=== PATIENT | female | born 1940 | race Caucasian/White ===

== ENCOUNTER 2017-07-13 09:35 | Observation (INO) | payer MEDICARE, BC ==
[~2017-07-13] VITALS: Ht 175.3 cm; Wt 111.7 kg
--- NOTE | ~2017-07-13 | ECHO ---
Transthoracic Echocardiography Report (TTE) Demographics Patient Name JOHNIE KIMBALL Date of Study 07/13/2017 TRACE Patient Number [id number] Visit Number [id number] Date of 1940 Room Number G6328 Accession Number [id number] Gender Female Age 77 year(s) Referring Thuan Ramirez MD Hip Hop Artist Maggie Gutierrez [facility], Physician RVT Physician Interpreting [place] Professor Of Philosophy Physician Florencia ROSA Supervising Ordering Physician Thuan Ramirez MD, MD/MLP Nurse Stress Panama Hat Blocker Conclusions Contractility Score Summary Normal Left Ventricular contractility was noted. Summary Normal LV size and systolic function. The estimated left ventricular ejection fraction is 60-65%. Diastolic function indeterminate due to patient's arrhythmia. Mildly dilated right ventricle. Mild degenerative changes of the left sided valves. Mild tricuspid regurgitation by color Doppler. Mild biatrial enlargement. Procedure Type of Study TTE procedure:2D Echocardiogram. Procedure Date Date: 07/13/2017 Start: 11:06 AM Study Location: Inpatient Portable Technical Quality: Adequate visualization Indications:Chest pain. Appropriate Use Criteria: 9 Patient Status: Routine Rhythm: Atrial fibrillation HR: 130 bpm BP: 120/82 mmHg M-Mode/2D Measurements LV Diastolic Dimension: 5.09 cm LV Systolic Dimension: 3.19 cm LV Septum Diastolic: 1.49 cm LV Septum Systolic: 3.3 cm LV PW Diastolic: 1 cm Cardiac Output: 6.75 l/min LA Dimension: 3.81 cm LVOT: 2.1 cm IVC Inspiration: 0.88 cm LVOT VTI: 15 cm RV Base: 4.87 cm LV Stroke volume: 51.93 ml RV Length: 5.42 cm TAPSE: 2.38 cm TDI-S': 14.6 cm/s Doppler Measurements AV Peak Velocity: 1.51 m/s MV Peak E-Wave: 1.1 m/s AV Peak Gradient: 9.12 mmHg MV Peak A-Wave: 0.5 m/s AV Mean Gradient: 4 mmHg MV E/A Ratio: 2.2 LVOT Peak Velocity: 0.9 m/s MV P1/2t: 29 msec TR Gradient:32.72 mmHg PV Peak Velocity: 1.22 m/s Estimated RAP:3 mmHg PV Peak Gradient: 5.95 mmHg Estimated RVSP: 36 mmHg Estimated PASP: 35.72 mmHg E' Lateral Velocity: 0.13 m/s A' Lateral Velocity: 0.04 m/s MV E/E' Ratio: 7.9 Findings Left Ventricle Diastolic function indeterminate due to patient's arrhythmia. Right Ventricle Mildly dilated right ventricle. Left Atrium Left atrium is mildly dilated. Right Atrium Mild RA enlargement. IVC is not well visualized. Mitral Valve Mild degenerative changes of the MV. Mild mitral annular calcification. Aortic Valve The aortic valve is mildly sclerotic. Tricuspid Valve There is mild pulmonary hypertension. The pulmonary pressure (RVSP) is 35 mmHg. Mild tricuspid regurgitation by color Doppler. Pulmonic Valve Normal pulmonic valve structure and function. The pulmonic valve is not well visualized. Pericardial Effusion Trivial pericardial effusion. Miscellaneous Suboptimal subcostal window to evaluate the IVC and interatrial septum. Pleural Effusion No evidence of pleural effusion. Contractility Score LV regional wall motion:(0-Non visualized 1-Normal 2-Hypokinesis 3-Akinesis 4-Dyskinesis 5-Aneurysm) Signature dtt: FLORENCIA MORILLO dtd: 07/13/17 1106 Physician Self Edit
--- NOTE | ~2017-07-13 | ER ---
[facility] 77 Y [address] ROOM: [place] [address] LOCATION: GPCU ADMIT DATE: 07/13/2017 ER/Outpatient Report DISCHARGE DATE: FAMILY PHYSICIAN: Miguel Chaney MD ATTENDING PHYSICIAN: Tanja Downing CHIEF COMPLAINT: Rapid heart rate. HISTORY OF PRESENT ILLNESS: Ms. Kimball notes that 2 days ago, she thinks she felt pretty good and yesterday did not feel normal like something was wrong but could not exactly describe it, and today she woke up sweaty and then after that she developed some racing heart sensation and unsettledness. She has some dizziness associated with this as well. It seemed to have really gotten worse around 6 or 7 this morning, but the exact time of onset is unclear. She denies any other symptoms initially but did develop a headache during her stay in the emergency department. The patient does drink a significant amount of coffee historically. She has never had anything like this before. She follows primarily with Dr. Chaney. She has a history of high blood pressure but denies any history of heart disease and has a history of C-sections, gallbladder resection, and hysterectomy. PAST MEDICAL HISTORY: Documented on the record and reviewed by me. SOCIAL HISTORY: Documented on the record and reviewed by me. MEDICATIONS: Documented on the record and reviewed by me. ALLERGIES: DOCUMENTED ON THE RECORD AND REVIEWED BY ME. REVIEW OF SYSTEMS: All systems reviewed and negative except as noted in the HPI. PHYSICAL EXAMINATION: VITAL SIGNS: Blood pressure 136/94, pulse 93, respiratory rate is 20, temperature 97.8, SpO2 is 94% on room air. Pain 0/10. GENERAL: An age appropriate female, recumbent on exam table, in no apparent pain or distress with eyes closed. NEURO: GCS is 14. Opens eyes to PATIENT'S NAME: JOHNIE KIMBALL [facility] AGE: 77 Y [address] ROOM: [place] [address] LOCATION: GPCU ADMIT DATE: 07/13/2017 ER/Outpatient Report DISCHARGE DATE: FAMILY PHYSICIAN: Miguel Chaney MD ATTENDING PHYSICIAN: Tanja Downing. No difficulties. No abnormalities. No asymmetry on exam. No nystagmus. HEENT: Normocephalic, atraumatic. Eyes are PERRL. Oropharynx is clear. NECK: Supple. Trachea is midline. CHEST: Heart is irregularly irregular tachycardia with no murmurs. LUNGS: Clear to auscultation. BACK: Normal to inspection and palpation. ABDOMEN: Soft, nontender, and nondistended. No rebound or guarding. EXTREMITIES: Warm and well perfused with no obvious edema or deformities. SKIN: Clean, dry, and intact without diaphoresis. LABORATORY DATA AND X-RAYS: Chest x-ray is unremarkable per my review. EKG reveals atrial fibrillation with a ventricular rate, which varies between 80 and 120 beats per minute. Otherwise normal intervals and axis. Labs: CMS unremarkable. No elevation of cardiac enzymes. TSH and free T4 within normal limits. Head CT was obtained with no evidence of hemorrhage as reported by Radiology after the patient had left the emergency department. CBC is notable for a hemoglobin of 17.3, otherwise no white cell or platelet abnormalities. INR is 1. IMPRESSION: 1. New onset atrial fibrillation with unclear start time. 2. Headache secondary to medication. EMERGENCY DEPARTMENT COURSE: The patient was seen and evaluated as above. She has new onset atrial fibrillation, which is likely within the last 48 hours, however, I cannot get a definitive time of onset. For that reason, I have elected to be conservative for her. I did discuss the case with Dr. Blanco, room attendants. She requested an echo, and we will get her admitted to the [facility] team under the care of Dr. Downing. The patient does have some stimulant use with caffeine. Denies other drugs. She did develop a headache, which started after the initiation of diltiazem despite no significant changes in her blood pressure. Heart rate was controlled better. She did not get the full bolus as there have been issues with that recently and creating hypotension. She was given 10. Dr. Blanco requested Xarelto, however, with the patient having a new onset headache that she has not had before, I did order a head prior to initiating the Xarelto, but I did order it. The patient went to the floor with her Xarelto having not taken it pending the results of the head CT. I had Radiology contact Dr. Downing directly regarding those results. Please see PATIENT'S NAME: JOHNIE KIMBALL [facility] AGE: 77 Y [address] ROOM: [address] [address] LOCATION: [facility] ADMIT DATE: 07/13/2017 ER/Outpatient Report DISCHARGE DATE: FAMILY PHYSICIAN: Miguel Chaney MD ATTENDING PHYSICIAN: Tanja Downing her dictation for details. MD IAN GONCALVES/angela /[id number] d: 07/13/172119 t: 07/19/17 0633, OUTPATIENT REPORT
--- NOTE | ~2017-07-13 | HP ---
PATIENT'S NAME: TAWNYA KIMBALL [facility] AGE: 77 Y [address] ROOM: [id number] [place] [address] [facility] ADMIT DATE: 07/13/2017 History & Physical DISCHARGE DATE: FAMILY PHYSICIAN: Miguel Chaney MD ATTENDING PHYSICIAN: Tanja Downing DATE OF SERVICE: CHIEF COMPLAINT: "I do not feel right." HISTORY OF PRESENT ILLNESS: Tawnya is a 77-year-old female who got up this morning, she woke up, and she was diaphoretic. Then, she got up and tried to go into the kitchen to make some coffee and she felt very weak, like she might pass out. She sat down to rest and then her got up and noticed her there. She states her chest felt a little bit of pressure, but no pain. She had mild nausea and shortness of breath with it as well. She has never had anything else like this prior. Denies any previous heart problems at all. She was found to have atrial fibrillation with rapid ventricular response in the emergency room during her workup. She was started on Cardizem drip and Dr. Don has been consulted. She did develop headache with the Cardizem, so a noncontrast CT of the head is pending. She does have a history of hypertension, but denies any history of hyperlipidemia or diabetes. PAST MEDICAL HISTORY: Operations include total knee arthroplasty, right and left; lumbosacral fusion, 5 levels; varicose vein surgery, stripping; tonsillectomy; ovarian cyst removal; oophorectomy in 1973 on the right side due to a tubal ; hysterectomy in 1983 due to precancerous cells; herniorrhaphy done in 1999; cataract surgery in 2007 and 2014; section x3 in 1962, 1965, and 1966; breast cyst on the right in 1962; and left breast biopsy in . OTHER HOSPITALIZATIONS: None. ILLNESSES: Hypertension; nocturnal hypoxia, for which she wears 2 L of oxygen at night; osteoarthritis; and urge incontinence. CURRENT MEDICATIONS: 1. Hydrochlorothiazide 12.5 mg daily. 2. Losartan 100 mg daily. 3. Metoprolol-XL 25 mg daily. 4. Pregabalin 50 mg at bedtime. PATIENT'S NAME: TAWNYA KIMBALL [facility] AGE: 77 Y [address] ROOM: [id number] [place], [place] [address] LOCATION: GPCU ADMIT DATE: 07/13/2017 History & Physical DISCHARGE DATE: FAMILY PHYSICIAN: Miguel Chaney MD ATTENDING PHYSICIAN: Tanja Downing. VESIcare 10 mg at bedtime p.r.n. ALLERGIES: CODEINE. FAMILY HISTORY: Positive for alcoholism. Asthma in both kids. Sister had a malignant neoplasm in her brain at age 73. Brother with prostate cancer. Mother with bone and uterine cancer. Sister with thyroid and breast cancer. A cousin with breast cancer. Father had an NV at age 71, sudden cardiac arrest. Hypertension in daughter, mother, sister, and son. Hypothyroidism in a sister. Brother with polycystic kidney disease. Nephew with ulcerative colitis. SOCIAL HISTORY: She has quit smoking for 12 years, but quit in 1984. She rarely drinks any alcohol. Drinks a moderate amount of coffee daily. She is and her address is [place]. Dr. Chaney is her usual primary physician. She comes in regularly for healthcare maintenance as well as monitoring of chronic illnesses. Her immunizations are up-to-date, flu shot in 2016, pneumonia shot in 2014. REVIEW OF SYSTEMS: GENERAL: Negative. ENT: Negative. CARDIOVASCULAR: See HPI. RESPIRATORY: Negative. GI: Negative other than a little bit of nausea. : She has urinary frequency and incontinence. She is on VESIcare for that. CAMP ADVISOR: Negative. BREAST: Has a right breast lump that is being followed. She has been getting mammograms every 6 months on that and recently had in April. MUSCULOSKELETAL: She does have arthritis complaints. PSYCH: Negative. DERM: Negative. NEURO: Negative. PHYSICAL EXAMINATION: GENERAL: Tawnya is a well-developed, well-nourished, 77-year-old female. She is alert and oriented x3. Gives an excellent history. VITAL SIGNS: Her pulse is 126 and irregularly irregular, blood pressure is 126/82, O2 saturation 96%, respiratory rate 18, and temperature 97.6. ENT: Pupils are equal and reactive. Extraocular muscles intact. Sclerae are clear. Posterior pharynx is normal. NECK: Supple without masses or thyromegaly. PATIENT'S NAME: JIGAR, TAWNYA TRACE [facility] AGE: 77 Y [address] ROOM: [id number] [place], [place] [address] [facility] ADMIT DATE: 07/13/2017 History & Physical DISCHARGE DATE: FAMILY PHYSICIAN: Miguel Chaney MD ATTENDING PHYSICIAN: Tanja Downing HEART: Irregularly irregular. No murmurs are auscultated. LUNGS: Lung umana are clear throughout. ABDOMEN: Soft. No organomegaly, masses, or tenderness. EXTREMITIES: Reveal no pitting edema. Good distal pulses. No abnormal skin lesions are noted. LABS/IMAGING: EKG shows atrial fibrillation with rapid ventricular response. Chest x-ray is clear. CBC, chemistries, and thyroid studies are within normal limits. Cardiac enzymes are negative. Echo is pending as a CT of the head. ASSESSMENT: 1. New onset atrial fibrillation with rapid ventricular response. 2. History of hypertension. 3. History of urge incontinence. 4. Nocturnal hypoxemia. 5. Obesity. PLAN: She is being admitted on PCU. Dr. Don has been consulted. She is being placed on Xarelto to help prevent complication of atrial fibrillation. She is on IV Cardizem for rate control. We will continue to work it up with the echocardiogram and proceed with DEBRA with cardioversion tomorrow if she does not convert spontaneously. She does wish to be a full code, this was discussed at length and I concur. Dr. Chaney will be in to see her in the morning. Prognosis good. MD BABATUNDE KIDD/modl /[id number] D: 940 T: 809 HISTORY & PHYSICAL
--- NOTE | ~2017-07-13 | CON ---
PATIENT'S NAME: TAWNYA KIMBALL [facility] AGE: 77 Y [address] ROOM: [place] [address] LOCATION: GPCU ADMIT DATE: 07/13/2017 Consultation DISCHARGE DATE: FAMILY PHYSICIAN: Miguel Chaney MD ATTENDING PHYSICIAN: Tanja Downing DATE OF CONSULTATION: 07/13/2017 REQUESTING PROVIDER: Dr. Larose. REASON FOR CARDIOLOGY CONSULTATION: Atrial fibrillation with RVR. HISTORY OF PRESENTING ILLNESS: The patient is a very pleasant 77-year-old female whose primary doctor is Dr. Chaney. The patient reports being in her usual state of health up until yesterday. She just reports she has not been feeling well. She also reports shortness of breath and dizziness. All night and day yesterday, she was not feeling well, but she just thought it would get better. However, her symptoms did not improve, and she finally decided to come to the emergency room today. In the ER, she was found to be in atrial fibrillation with RVR with rates in the 110 to 130 range. She has history of hypertension and prediabetes, and she really does not have any other significant medical problems. The patient does not report any stroke-like symptoms. No changes in speech, sensation, and strength. She also does not have any nausea, vomiting, diarrhea, or constipation. She has been eating well. She does not have any chest discomfort. No lower extremity edema, dyspnea on exertion, PND, or orthopnea. She does report occasional palpitations and dizziness since yesterday. During interview, the patient is quite comfortable and not in any apparent distress. REVIEW OF SYSTEMS: All review of systems discussed with the patient. Pertinent positives and negatives mentioned in the History of Presenting Illness. PAST MEDICAL HISTORY: Hypertension, osteoarthritis, and prediabetes. She is on oxygen 2 L at night. PAST SURGICAL HISTORY: PATIENT'S NAME: TAWNYA KIMBALL [facility] AGE: 77 Y [address] ROOM: [place] [address] LOCATION: GPCU ADMIT DATE: 07/13/2017 Consultation DISCHARGE DATE: FAMILY PHYSICIAN: Miguel Chaney MD ATTENDING PHYSICIAN: Tanja Downing Left knee arthroscopic surgery, left breast and right breast biopsy, C- section, cataract surgery, cholecystectomy, hernia repair, hysterectomy, left knee replacement, oophorectomy, tonsillectomy, total knee replacement on the right side, and varicose vein surgery of both lower extremities in 2008. FAMILY HISTORY: No premature coronary artery disease or sudden cardiac . SOCIAL HISTORY: The patient does not drink or abuse alcohol. No tobacco use. She drinks 2 to 3 cups of coffee per day. She lives here in [place]. HOME MEDICATIONS: She is on: 1. Aleve p.r.n. 2. Calcium with vitamin D daily. 3. Losartan 100 daily. 4. Lyrica 50 two capsules at bedtime. 5. Metoprolol succinate 50 daily. 6. Tylenol Arthritis p.r.n. 7. VESIcare 10 mg daily. 8. Vitamin C daily. ALLERGIES: CODEINE AND ESTRATAB, AND INTOLERANCE TO PAIN MEDICATIONS. PHYSICAL EXAMINATION: VITAL SIGNS: Blood pressure is 130/70; heart rate 110, irregular, tachycardic; afebrile; O2 saturation is 96% on room air. SKIN: Warm and dry. GENERAL: The patient is alert and oriented, not in any apparent distress. She is cooperative. HEAD: Atraumatic. NECK: No JVD. EYES: Sclerae are white. No xanthelasmas. HEART: S1 and S2. Tachycardic. Irregular rate and rhythm. Variable S1. No murmurs, gallops, or rubs. LUNGS: Clear to auscultation bilaterally. ABDOMEN: Soft. Bowel sounds positive. EXTREMITIES: No significant lower extremity edema. MUSCULOSKELETAL: Good range of motion. NEUROLOGIC: Grossly intact. LABORATORY DATA: Her sodium is 141, potassium 4.1, chloride 109, CO2 of 24, glucose 127, PATIENT'S NAME: TAWNYA KIMBALL [facility] AGE: 77 Y [address] ROOM: [place] [address] LOCATION: GPCU ADMIT DATE: 07/13/2017 Consultation DISCHARGE DATE: FAMILY PHYSICIAN: Miguel Chaney MD ATTENDING PHYSICIAN: Tanja Downing calcium 9, BUN 24, and creatinine 0.9. CPK 109, CK-MB 2.4, and troponin less than 0.04. TSH 0.58 and free T4 of 1.2. Liver enzymes are within normal limits. WBC 8.5, H and H 17.3 and 49.8, and platelets are 267. Chest x-ray: No acute cardiopulmonary process. IMPRESSION: 1. Atrial fibrillation with rapid ventricular response. 2. Hypertension. 3. Mild dehydration. PLAN: At this time, she does have persistent atrial fibrillation. Appears that she started having symptoms yesterday at some point. She appears to be mildly dehydrated. I will give her 1 L of normal saline, start her on Cardizem drip for better rate control, continue metoprolol, monitor heart rate closely, and titrate according to heart rate and blood pressure. We will use NOAC for anticoagulation. She does not have any bleeding issues. At this point, if she does not convert to normal sinus rhythm spontaneously, we will plan for DEBRA cardioversion for tomorrow since this is new onset. Her CHADS-VASc score is elevated, and she does need to be on thromboembolic prophylaxis with oral anticoagulation. Risks and benefits of long-term anticoagulation discussed with the patient. She does not have any obvious bleeding issues. The patient is agreeable to start and continue oral anticoagulation to minimize risk of stroke. The risks and benefits of DEBRA and cardioversion explained to the patient, and she is agreeable to proceed. Risks include, but are not limited to changes in respiration, changes in blood pressure, stroke, esophageal perforation less than 1 in 1000 cases. The patient is a full code. Thank you very much Dr. Downing and Dr. Chaney for allowing us to participate in the care of Mrs. Tawnya Kimball. JUAN JOSE MORILLO MD AT/modl /[id number] d: 07/13/171917 t: 07/15/17 09, CONSULTATION REPORT
[2017-07-13 09:54] LABS: BASOPHIL # 0.1 K/uL (0.0-0.2); BASOPHIL % 0.6 %; EOSINOPHIL # 0.2 K/uL (0.0-0.5); EOSINOPHIL % 2.1 %; HEMATOCRIT 49.8 % (33.0-46.0); HEMOGLOBIN 17.3 g/dL (10.0-15.0); IMMATURE GRANULOCYTE % 0.2 %; LYMPHOCYTE # 2.5 K/uL (0.8-4.0); LYMPHOCYTE % 29.8 %; MCH 30.8 pg (27.0-34.0); MCHC 34.7 gm/dL (32.0-36.5); MCV 88.6 fl (83.0-98.0); MONOCYTE # 0.7 K/uL (0.0-1.0); MONOCYTE % 8.2 %; MPV 9.5 fl (9.4-12.4); NEUTROPHIL % 59.1 %; NRBC % 0 /100WBC (0-0.00); PLATELET COUNT 267 K/uL (150-450); RDW-CV 12.7 % (11.9-14.6); WBC 8.5 K/uL (4.0-11.0)
[2017-07-13 09:55] LABS: RBC 5.62 M/uL (3.50-5.50)
[2017-07-13 10:02] LABS: INR - (THERAPEUTIC) 1.06 (0.92-1.07); PROTIME 11.1 SECONDS (9.8-11.4); PTT 32 SECONDS (25-32)
[2017-07-13 10:13] LABS: ALBUMIN 3.6 gm/dL (3.5-5.0); ALK PHOS 72 IU/L (33-138); ALT 26 IU/L (12-78); ANION GAP 12.1 (10.0-19.0); AST 25 IU/L (10-40); BLOOD UREA NITROGEN 24 mg/dL (6-24); CHLORIDE 109 mMol/L (96-110); CO2 24 mMol/L (22-32); CPK 119 IU/L (21-215); CREATININE 0.9 mg/dL (0.5-1.1); MAGNESIUM 2.1 mg/dL (1.8-2.6); POTASSIUM 4.1 mMol/L (3.7-5.1); SODIUM 141 mMol/L (135-145); TOTAL PROTEIN 6.8 g/dL (6.0-8.4)
[2017-07-13 12:18] LABS: CPK 109 IU/L (21-215)
[2017-07-13] MEDS ORDERED: HYDROCHLOROTH12.5 MG PO (12:24)
[2017-07-13] MEDS ORDERED: COZAAR100 MG PO (12:25)
[2017-07-13] MEDS ORDERED: LYRICA 50MG CAP50 MG PO (12:26)
[2017-07-13] MEDS ORDERED: TOPROL XL 5050 MG PO (12:27)
[2017-07-13] MEDS ORDERED: VESICARE10 MG PO (12:37)
[2017-07-14] MEDS ORDERED: XARELTO20 MG PO (11:10)
[2017-07-14] MEDS ORDERED: CARDIZEM30 MG PO (12:13)
== END 2017-07-14 13:10 | disposition disaster alternative care site (69) ==
LOC: GMED 09:35 → GPCU 10:49
PROVIDERS: Emergency Medicine; ADMIT Family Medicine
DX: I48.0 Paroxysmal atrial fibrillation (principal); I10 Essential (primary) hypertension; E86.0 Dehydration; M19.90 Unspecified osteoarthritis, unspecified site; R73.03 Prediabetes; Z79.899 Other long term (current) drug therapy; Z88.6 Allergy status to analgesic agent; Z88.8 Allergy status to other drugs, medicaments and biological substances
CPT/HCPCS: J0692; J7030; J7040